=== PATIENT | female | born 1950 | race Caucasian/White ===

== ENCOUNTER 2017-05-11 16:04 | Emergency (ER) | payer MEDICAID ==
[~2017-05-11] VITALS: Ht 165.1 cm; Wt 71.2 kg
[~2017-05-11 16:04] MED LIST: ACTONEL30 MG PO; ADULT TUSS100 MG/5 M PO; ADVAIR 250-501 EACH INH; ADVAIR HFA115 MCG/21; ALPHAGAN P10 ML OPHTHALMIC; AMOXICILLIN500 M1 PO; AUGMENTIN 875875 MG PO; BACTRIM DS TAB1 EACH PO; CEFDINIR300 MG PO; CEFTIN 250 MG250 MG; CEFUROXIME250 MG PO; CIPROFLOXACIN; CIPROFLOXACIN250 M2; CIPROFLOXACIN500 M1 PO; CIPROFLOXACIN500 M3 PO; CLEOCIN HCL150 MG PO; COLACE100 MG PO; COSOPT EYE DROPS5 ML; COSOPT PF EYE1 EACH OPHTHALMIC; DIFLUCAN150 MG PO; ESTRING1 EACH VG; FLAGYL500 MG PO; FLEXERIL PO; INDAPAMIDE1.25 MG; KEFLEX250 MG PO; KEFLEX500 MG PO; KLOR-CON 1010 MEQ PO; LEVAQUIN 250 M250 MG; LEVAQUIN 500 M500 M2 PO; LINZESS290 MCG; LINZESS290 MCG PO; MACROBID 100 M100 M1 PO; MACRODANTIN25 MG; MINOCYCLINE 5050 M1 PO; MIRALAX17 GM PO; NORCO 5-325 TA1 EACH PO; NYSTATIN-TRIAMC15 GM TOP; ONDANSETRON HCL4 M2 PO; OSELB75 PO; PERCOCET 5-3251 EACH PO; PERI-COLACE TA1 EACH PO; POTASSIUM20 PO; PROAIR HFA8.5 GM; PROAIR HFA8.5 GM INH; PYRIDIUM200 MG PO; RANITIDINE; ROBAXIN500 MG PO; SINGULAIR; SINGULAIR 10 MG10 M1 PO; TERAZOL 320 GM VG; TRAMADOL 50 MG50 MG PO; URISPAS100 MG PO; VENTOLIN HFA INH8 GM IH; VICOPROFEN 2001 EACH PO; VISTARIL 25 MG25 M1 PO; XALATAN2.5 M1 OP; ZANTAC 150MG T150 MG PO; [UNRECOGNIZED DRUG - REMARK]
[2017-05-11 16:29] LABS: ABSOLUTE BASOPHILS 0.1 thou/uL (0.0-0.2); ABSOLUTE EOSINOPHILS 0.8 thou/uL (0.0-0.7); ABSOLUTE LYMPHOCYTES 2.4 thou/uL (0.8-5.3); ABSOLUTE MONOCYTES 0.6 thou/uL (0.0-1.2); ABSOLUTE NEUTROPHILS 4.2 thou/uL (1.6-8.1); BASOPHILS 0.7 %; EOSINOPHILS 9.5 %; HEMATOCRIT 41.9 % (37.0-47.0); HEMOGLOBIN 14.2 gm/dL (12.0-15.0); LYMPHOCYTES 30.1 %; MCH 32.2 pg (26.0-34.0); MCHC 33.9 g/dL (28.0-37.0); MONOCYTES 7.5 %; MPV 8.6 fl. (7.2-11.1); NUCLEATED RBCS 0 /100WBC; PLATELET COUNT* 265 thou/uL (150-400); POLYS 52.2 %; RBC 4.41 mil/uL (4.20-5.00); RDW-CV 13.2 % (10.5-14.5)
[2017-05-11 16:42] LABS: ANION GAP 12 mmol/L (7-16); BUN 20 mg/dL (7-18); CALCIUM 9.2 mg/dL (8.5-10.1); CHLORIDE 100 mmol/L (98-107); CO2 27 mmol/L (21-32); CREATININE 1.5 mg/dL (0.6-1.3); GLUCOSE 96 mg/dL (70-99); POTASSIUM 3.1 mmol/L (3.5-5.1); SODIUM 139 mmol/L (136-145)
[2017-05-11 16:49] LABS: ALBUMIN 4.6 g/dL (3.4-5.0); ALKALINE PHOSPHATASE 69 U/L (46-116); NT-PRO BRAIN NAT PEPTIDE 301 pg/mL (<300); SGOT 28 U/L (15-37); SGPT 32 U/L (30-65); TOTAL BILIRUBIN 0.4 mg/dL (<0.1-1.0); TROPONIN-I LEVEL <0.06 ng/mL (<0.06)
[2017-05-11 20:23] VITALS: BP 151/77
--- NOTE | 2017-05-12 16:26 | EKG ---
[place] [address] ELECTROCARDIOGRAM REPORT Name: JOSE ROMAN Alejandro Room: [facility]#: [id number] Admission: 05/11/17 Attend Phys: Discharge: 05/11/17 Date of : 50 Report #: [id number] THIS REPORT FOR: //name// [facility] ED Test Date: 2017-05-11 Test Time: 16:11:01 Pat Name: JOSE BENSON Department: Room: Gender: F Compliance Examiner: Debora ROSA : 1950 Requested By: Robert Wyatt Order Number: [id number] MD: Luisito Harvey Measurements Intervals [place] Rate: 90 P: 76 [place]: 147 QRS: -12 QRSD: 98 T: 64 QT: 376 QTc: 460 Interpretive Statements Sinus rhythm Ventricular trigeminy Baseline wander Electronically Signed On 05-12-2017 16:25:53 PLATE GRAINER by Luisito Harvey [email or web address] <ELECTRONICALLY SIGNED> By: Luisito Harvey MD, [facility] 05/12/17 1625 1611 1611 Luisito Harvey MD, FACC /EPI
== END 2017-05-11 20:23 | disposition home or self-care (01) ==
LOC: M.ERS 16:04
PROVIDERS: Physician Assistant
DX: R00.2 Palpitations (principal); E87.6 Hypokalemia; I12.9 Hypertensive chronic kidney disease with stage 1 through stage 4 chronic kidney disease, or unspecified chronic kidney disease; N18.3 Chronic kidney disease, stage 3 (moderate); E05.90 Thyrotoxicosis, unspecified without thyrotoxic crisis or storm; H40.9 Unspecified glaucoma; J45.909 Unspecified asthma, uncomplicated; Z87.11 Personal history of peptic ulcer disease; Z87.440 Personal history of urinary (tract) infections; Z98.890 Other specified postprocedural states; Z91.041 Radiographic dye allergy status; Z88.6 Allergy status to analgesic agent; Z88.5 Allergy status to narcotic agent; Z88.2 Allergy status to sulfonamides

== ENCOUNTER 2017-05-14 23:33 | Emergency (ER) | payer MEDICAID ==
[~2017-05-14] VITALS: Ht 165.1 cm; Wt 69.0 kg
[2017-05-15 00:33] LABS: URINE BILIRUBIN NEGATIVE (Negative); URINE BLOOD NEGATIVE (Negative); URINE CLARITY CLEAR; URINE COLOR DARK YELLOW; URINE GLUCOSE-RANDOM NEGATIVE (Negative); URINE KETONES NEGATIVE (Negative); URINE LEUKOCYTES-REFLEX NEGATIVE (Negative); URINE PROTEIN NEGATIVE (Negative); URINE SPECIFIC GRAVITY >= 1.030 (1.005-1.030); URINE UROBILINOGEN 0.2 E.U./dl (0.2-1.0)
[2017-05-15 00:34] LABS: URINE NITRITE-REFLEX POSITIVE (Negative)
[2017-05-15 00:49] LABS: HEMATOCRIT 39.7 % (37.0-47.0); MCH 31.9 pg (26.0-34.0); MCHC 32.8 g/dL (28.0-37.0); MCV 97.2 fL (80.0-100.0); MPV 9.6 fl. (7.2-11.1); NUCLEATED RBCS 0 /100WBC; PLATELET COUNT* 232 thou/uL (150-400); RBC 4.08 mil/uL (4.20-5.00); RDW-CV 12.9 % (10.5-14.5); WBC 8.7 thou/uL (4.0-11.0)
[2017-05-15 00:54] LABS: ANION GAP 11 mmol/L (7-16); BUN 24 mg/dL (7-18); CALCIUM 8.8 mg/dL (8.5-10.1); CHLORIDE 103 mmol/L (98-107); CO2 28 mmol/L (21-32); CREATININE 1.5 mg/dL (0.6-1.3); GLUCOSE 115 mg/dL (70-99); POTASSIUM 3.6 mmol/L (3.5-5.1); SODIUM 142 mmol/L (136-145)
[2017-05-15 00:56] LABS: PROTIME 10.1 Seconds (9.20-11.50)
[2017-05-15 01:05] LABS: ALBUMIN 3.8 g/dL (3.4-5.0); ALKALINE PHOSPHATASE 55 U/L (46-116); NT-PRO BRAIN NAT PEPTIDE 240 pg/mL (<300); SGOT 33 U/L (15-37); SGPT 31 U/L (30-65); TOTAL BILIRUBIN 0.3 mg/dL (<0.1-1.0); TOTAL PROTEIN 6.9 g/dL (6.4-8.2)
[2017-05-15 01:06] LABS: TROPONIN-I LEVEL <0.06 ng/mL (<0.06)
[2017-05-15 01:12] LABS: HYALINE CASTS 0-3 Few /LPF (None Seen); MUCUS 0-3 Light strn/LPF (None Seen); SQUAMOUS 4-10 Moderate /LPF (0-3); URINE RBC None Seen /HPF (0-2)
[2017-05-15 01:13] LABS: BACTERIA-REFLEX 1-9 Few /HPF (None Seen); CRYSTALS None Seen /LPF (None Seen); URINE WBC-REFLEX 0-5 Rare /HPF (0-5)
[2017-05-15 01:59] LABS: ABSOLUTE BASOPHILS 0.2 thou/uL (0.0-0.2); ABSOLUTE EOSINOPHILS 1.2 thou/uL (0.0-0.7); ABSOLUTE LYMPHOCYTES 2.1 thou/uL (0.8-5.3); ABSOLUTE MONOCYTES 0.4 thou/uL (0.0-1.2); ABSOLUTE NEUTROPHILS 4.8 thou/uL (1.6-8.1); ATYPICAL LYMPHS 1 %
[2017-05-15 02:00] LABS: PLATELET ESTIMATE ADEQUATE
[2017-05-15 02:31] VITALS: BP 141/71
--- NOTE | 2017-05-15 13:12 | EKG ---
[place] [address] ELECTROCARDIOGRAM REPORT Name: JOSE ROMAN Room: [facility]#: [id number] Admission: 05/14/17 Attend Phys: Discharge: 05/15/17 Date of : 50 Report #: [id number] THIS REPORT FOR: //name// [facility] ED Test Date: 2017-05-14 Test Time: 23:38:07 Pat Name: JOSE CHATTERJEEWELL Department: Room: Gender: F Filbert Grower: HOLLI : 1950 Requested By: Aletha Gilbert Order Number: [id number] MD: Gerry Solitario Measurements Intervals [place] Rate: 81 P: 72 [place]: 151 QRS: 12 QRSD: 97 T: 61 QT: 384 QTc: 446 Interpretive Statements Sinus arrhythmia Anteroseptal infarct, age indeterminate Baseline wander in lead(s) V1 Compared to ECG 05/11/2017 16:11:01 Myocardial infarct finding now present Sinus rhythm no longer present Ventricular premature complex(es) no longer present Electronically Signed On 05-15-2017 13:12:23 JUNIOR PHP DEVELOPER by Gerry Solitario [email or web address] <ELECTRONICALLY SIGNED> By: Gerry Solitario MD, [facility] 05/15/17 1312 2338 2338 Gerry Solitario MD, FAC /EPI
== END 2017-05-15 02:31 | disposition home or self-care (01) ==
LOC: M.ERS 23:33
PROVIDERS: Emergency Medicine
DX: R00.2 Palpitations (principal); I12.9 Hypertensive chronic kidney disease with stage 1 through stage 4 chronic kidney disease, or unspecified chronic kidney disease; N18.3 Chronic kidney disease, stage 3 (moderate); H40.9 Unspecified glaucoma; E03.9 Hypothyroidism, unspecified; J45.909 Unspecified asthma, uncomplicated; Z91.041 Radiographic dye allergy status; Z88.5 Allergy status to narcotic agent; Z88.2 Allergy status to sulfonamides; Z88.8 Allergy status to other drugs, medicaments and biological substances

== ENCOUNTER 2017-05-18 04:00 | Emergency (ER) | payer MEDICAID ==
[~2017-05-18] VITALS: Ht 162.6 cm; Wt 68.0 kg
[2017-05-18] MEDS ORDERED: ADVAIR (04:10)
[2017-05-18] MEDS ORDERED: PROAIR HFA8.5 GM (04:10)
[2017-05-18] MEDS ORDERED: SINGULAIR 10 MG10 M1 (04:10)
[2017-05-18] MEDS ORDERED: [UNRECOGNIZED DRUG - OTHER] (04:11)
[2017-05-18] MEDS ORDERED: METOPROLOL (04:12)
[2017-05-18] MEDS ORDERED: RANITIDINE (04:12)
[2017-05-18 04:48] LABS: HEMATOCRIT 37.9 % (37.0-47.0); HEMOGLOBIN 12.6 gm/dL (12.0-15.0); MCH 32.1 pg (26.0-34.0); MCHC 33.2 g/dL (28.0-37.0); MCV 96.8 fL (80.0-100.0); MPV 8.9 fl. (7.2-11.1); NUCLEATED RBCS 0 /100WBC; PLATELET COUNT* 230 thou/uL (150-400); RBC 3.92 mil/uL (4.20-5.00); RDW-CV 13.4 % (10.5-14.5)
[2017-05-18 04:50] LABS: ANION GAP 10 mmol/L (7-16); BUN 23 mg/dL (7-18); CALCIUM 8.8 mg/dL (8.5-10.1); CHLORIDE 107 mmol/L (98-107); CO2 25 mmol/L (21-32); CREATININE 1.1 mg/dL (0.6-1.3); GLUCOSE 105 mg/dL (70-99); POTASSIUM 4.3 mmol/L (3.5-5.1); SODIUM 142 mmol/L (136-145)
[2017-05-18 04:56] LABS: URINE BILIRUBIN NEGATIVE (Negative); URINE BLOOD NEGATIVE (Negative); URINE CLARITY CLEAR; URINE COLOR STRAW; URINE GLUCOSE-RANDOM NEGATIVE (Negative); URINE KETONES NEGATIVE (Negative); URINE LEUKOCYTES-REFLEX NEGATIVE (Negative); URINE NITRITE-REFLEX NEGATIVE (Negative); URINE PROTEIN NEGATIVE (Negative); URINE SPECIFIC GRAVITY <= 1.005 (1.005-1.030); URINE UROBILINOGEN 0.2 E.U./dl (0.2-1.0)
[2017-05-18 05:00] LABS: ALBUMIN 3.7 g/dL (3.4-5.0); ALKALINE PHOSPHATASE 52 U/L (46-116); SGOT 22 U/L (15-37); SGPT 27 U/L (30-65); TOTAL BILIRUBIN 0.2 mg/dL (<0.1-1.0); TOTAL PROTEIN 6.4 g/dL (6.4-8.2); TROPONIN-I LEVEL <0.06 ng/mL (<0.06)
[2017-05-18 05:51] LABS: ABSOLUTE BASOPHILS 0.1 thou/uL (0.0-0.2); ABSOLUTE EOSINOPHILS 0.9 thou/uL (0.0-0.7); ABSOLUTE LYMPHOCYTES 1.8 thou/uL (0.8-5.3); ABSOLUTE MONOCYTES 0.8 thou/uL (0.0-1.2); ABSOLUTE NEUTROPHILS 4.4 thou/uL (1.6-8.1); ANISOCYTOSIS 1+; PLATELET ESTIMATE ADEQUATE; POIKILOCYTOSIS 1+
[2017-05-18 06:12] VITALS: BP 130/54
--- NOTE | 2017-05-18 11:26 | EKG ---
[place] [address] ELECTROCARDIOGRAM REPORT Name: COLMENARES MARCELINOJOSE Alejandro Room: [facility]#: [id number] Admission: 05/18/17 Attend Phys: Discharge: 05/18/17 Date of : 50 Report #: [id number] THIS REPORT FOR: //name// [facility] ED Test Date: 2017-05-18 Test Time: 04:07:56 Pat Name: JOSE BENSON Department: Room: Gender: F Ground Operations Supervisor: JANNA Cazares : 1950 Requested By: Aletha Gilbert Order Number: [id number] MD: George Cohen Measurements Intervals [place] Rate: 79 P: 79 [place]: 146 QRS: 15 QRSD: 92 T: 54 QT: 405 QTc: 465 Interpretive Statements Sinus rhythm Ventricular trigeminy Probable anteroseptal infarct, recent Baseline wander in lead(s) V5,V6 No previous ECG available for comparison Electronically Signed On 05-18-2017 11:26:12 BUCKLE SORTER by George Cohen [email or web address] <ELECTRONICALLY SIGNED> By: George Cohen MD, [facility] 05/18/17 1126 0407 0407 George Cohen MD, [facility] /EPI
== END 2017-05-18 06:15 | disposition home or self-care (01) ==
LOC: M.ERS 04:00
PROVIDERS: Emergency Medicine
DX: R19.7 Diarrhea, unspecified (principal); R00.2 Palpitations; I12.9 Hypertensive chronic kidney disease with stage 1 through stage 4 chronic kidney disease, or unspecified chronic kidney disease; N18.3 Chronic kidney disease, stage 3 (moderate)

== ENCOUNTER 2017-06-18 12:37 | Emergency (ER) | payer MEDICAID ==
[~2017-06-18] VITALS: Ht 162.6 cm; Wt 71.7 kg
[~2017-06-18 12:37] MED LIST changes: +ADVAIR; +METOPROLOL; +SINGULAIR 10 MG10 M1; +[UNRECOGNIZED DRUG - OTHER]
[2017-06-18] MEDS ORDERED: ZANTAC 150MG T150 MG PO (12:57)
[2017-06-18] MEDS ORDERED: INDAPAMIDE1.25 MG PO (12:58)
[2017-06-18 13:16] LABS: URINE BILIRUBIN NEGATIVE (Negative); URINE BLOOD NEGATIVE (Negative); URINE CLARITY CLEAR; URINE COLOR YELLOW; URINE GLUCOSE-RANDOM NEGATIVE (Negative); URINE KETONES NEGATIVE (Negative); URINE LEUKOCYTES-REFLEX NEGATIVE (Negative); URINE NITRITE-REFLEX NEGATIVE (Negative); URINE PROTEIN TRACE (Negative); URINE SPECIFIC GRAVITY >= 1.030 (1.005-1.030); URINE UROBILINOGEN 0.2 E.U./dl (0.2-1.0)
[2017-06-18 13:28] LABS: ABSOLUTE BASOPHILS 0.1 thou/uL (0.0-0.2); ABSOLUTE EOSINOPHILS 0.5 thou/uL (0.0-0.7); ABSOLUTE LYMPHOCYTES 1.5 thou/uL (0.8-5.3); ABSOLUTE MONOCYTES 0.4 thou/uL (0.0-1.2); ABSOLUTE NEUTROPHILS 4.6 thou/uL (1.6-8.1); BASOPHILS 0.8 %; EOSINOPHILS 7.1 %; HEMATOCRIT 38.6 % (37.0-47.0); HEMOGLOBIN 12.7 gm/dL (12.0-15.0); LYMPHOCYTES 20.9 %; MCH 31.9 pg (26.0-34.0); MCHC 32.9 g/dL (28.0-37.0); MCV 96.9 fL (80.0-100.0); MPV 8.6 fl. (7.2-11.1); NUCLEATED RBCS 0 /100WBC; PLATELET COUNT* 248 thou/uL (150-400); POLYS 65.2 %; RBC 3.99 mil/uL (4.20-5.00); RDW-CV 13.1 % (10.5-14.5)
[2017-06-18 13:32] LABS: CALCIUM 8.7 mg/dL (8.5-10.1); CREATININE 1.3 mg/dL (0.6-1.3); POTASSIUM 3.9 mmol/L (3.5-5.1)
[2017-06-18 13:37] LABS: ALBUMIN 3.6 g/dL (3.4-5.0); TOTAL BILIRUBIN 0.2 mg/dL (<0.1-1.0); TOTAL PROTEIN 6.6 g/dL (6.4-8.2)
[2017-06-18 15:05] VITALS: BP 140/70
== END 2017-06-18 15:07 | disposition home or self-care (01) ==
LOC: M.ERS 12:37
PROVIDERS: Physician Assistant
DX: R10.32 Left lower quadrant pain (principal); R10.12 Left upper quadrant pain; I12.9 Hypertensive chronic kidney disease with stage 1 through stage 4 chronic kidney disease, or unspecified chronic kidney disease; N18.3 Chronic kidney disease, stage 3 (moderate); Z88.2 Allergy status to sulfonamides; Z88.8 Allergy status to other drugs, medicaments and biological substances; Z88.5 Allergy status to narcotic agent; Z91.041 Radiographic dye allergy status

== ENCOUNTER 2017-07-01 05:36 | Emergency (ER) | payer MEDICAID ==
[~2017-07-01] VITALS: Ht 162.6 cm; Wt 70.3 kg
[~2017-07-01 05:36] MED LIST changes: +INDAPAMIDE1.25 MG PO
[2017-07-01 06:02] LABS: ABSOLUTE BASOPHILS 0.1 thou/uL (0.0-0.2); ABSOLUTE EOSINOPHILS 0.3 thou/uL (0.0-0.7); ABSOLUTE LYMPHOCYTES 1.4 thou/uL (0.8-5.3); ABSOLUTE MONOCYTES 0.8 thou/uL (0.0-1.2); ABSOLUTE NEUTROPHILS 3.2 thou/uL (1.6-8.1); BASOPHILS 1.4 %; HEMATOCRIT 36.7 % (37.0-47.0); HEMOGLOBIN 12.2 gm/dL (12.0-15.0); MCH 31.9 pg (26.0-34.0); MCHC 33.3 g/dL (28.0-37.0); MONOCYTES 13.6 %; MPV 8.1 fl. (7.2-11.1); NUCLEATED RBCS 0 /100WBC; PLATELET COUNT* 190 thou/uL (150-400); RBC 3.82 mil/uL (4.20-5.00); RDW-CV 13.1 % (10.5-14.5); WBC 5.8 thou/uL (4.0-11.0)
[2017-07-01 06:27] LABS: ALBUMIN 3.3 g/dL (3.4-5.0); ALKALINE PHOSPHATASE 67 U/L (46-116); ANION GAP 13 mmol/L (7-16); BUN 17 mg/dL (7-18); CALCIUM 8.1 mg/dL (8.5-10.1); CHLORIDE 107 mmol/L (98-107); CO2 21 mmol/L (21-32); CREATININE 1.3 mg/dL (0.6-1.3); GLUCOSE 105 mg/dL (70-99); SGOT 46 U/L (15-37); SGPT 56 U/L (30-65); SODIUM 141 mmol/L (136-145); TOTAL BILIRUBIN 0.1 mg/dL (<0.1-1.0); TOTAL PROTEIN 6.3 g/dL (6.4-8.2); TROPONIN-I LEVEL <0.06 ng/mL (<0.06)
[2017-07-01 06:43] LABS: URINE BILIRUBIN NEGATIVE (Negative); URINE BLOOD NEGATIVE (Negative); URINE CLARITY CLEAR; URINE COLOR YELLOW; URINE GLUCOSE-RANDOM NEGATIVE (Negative); URINE KETONES NEGATIVE (Negative); URINE LEUKOCYTES-REFLEX NEGATIVE (Negative); URINE NITRITE-REFLEX NEGATIVE (Negative); URINE PROTEIN NEGATIVE (Negative); URINE UROBILINOGEN 0.2 E.U./dl (0.2-1.0)
[2017-07-01 06:59] VITALS: BP 148/56
--- NOTE | 2017-07-01 10:36 | EKG ---
[place] [address] ELECTROCARDIOGRAM REPORT Name: JOSE ROMAN Alejandro Room[facility]#: [id number] Admission: 07/01/17 Attend Phys: Discharge: 07/01/17 Date of : 50 Report #: [id number] THIS REPORT FOR: //name// [facility] ED Test Date: 2017-07-01 Test Time: 05:41:22 Pat Name: JOSE BENSON Department: Room: Gender: F Roustabout Crew: JANNA Cazares : 1950 Requested By: Aletha Gilbert Order Number: [id number] MD: George Cohen Measurements Intervals [place] Rate: 102 P: 69 [place]: 161 QRS: 8 QRSD: 98 T: 66 QT: 364 QTc: 475 Interpretive Statements Sinus rhythm atrial and ventricular premature complexes Probable left atrial enlargement Anterior infarct, old Baseline wander in lead(s) V2,V3 Compared to ECG 05/18/2017 04:07:56 Myocardial infarct finding still present Electronically Signed On 07-01-2017 10:36:21 SCREW MACHINE ADJUSTER AUTOMATIC by George Cohen [email or web address] <ELECTRONICALLY SIGNED> By: George Cohen MD, FAC 07/01/17 1036 0541 0541 George Cohen MD, [facility] /EPI
== END 2017-07-01 07:00 | disposition home or self-care (01) ==
LOC: M.ERS 05:36
PROVIDERS: Emergency Medicine
DX: E87.6 Hypokalemia (principal); J06.9 Acute upper respiratory infection, unspecified; I12.9 Hypertensive chronic kidney disease with stage 1 through stage 4 chronic kidney disease, or unspecified chronic kidney disease; N18.3 Chronic kidney disease, stage 3 (moderate); Z88.2 Allergy status to sulfonamides; Z88.8 Allergy status to other drugs, medicaments and biological substances; Z88.5 Allergy status to narcotic agent; Z91.041 Radiographic dye allergy status

== ENCOUNTER 2017-10-02 19:15 | Emergency (ER) | payer MEDICAID ==
[~2017-10-02] VITALS: Ht 162.6 cm; Wt 68.0 kg
[2017-10-02] MEDS ORDERED: ASPIR 8181 MG PO (19:32)
[2017-10-02] MEDS ORDERED: KEFLEX250 MG PO (19:33)
[2017-10-02] MEDS ORDERED: MOTION RELIEF25 MG PO (20:36)
[2017-10-02] MEDS ORDERED: ZOFRAN ODT4 MG PO (20:36)
[2017-10-02 20:40] VITALS: BP 124/63
== END 2017-10-02 20:46 | disposition home or self-care (01) ==
LOC: M.ERS 19:15
DX: S06.0X0A Concussion without loss of consciousness, initial encounter (principal); I12.9 Hypertensive chronic kidney disease with stage 1 through stage 4 chronic kidney disease, or unspecified chronic kidney disease; N18.3 Chronic kidney disease, stage 3 (moderate); Z91.041 Radiographic dye allergy status; Z88.5 Allergy status to narcotic agent; Z88.6 Allergy status to analgesic agent; Z88.1 Allergy status to other antibiotic agents; Z88.8 Allergy status to other drugs, medicaments and biological substances; W22.8XXA Striking against or struck by other objects, initial encounter; Y93.89 Activity, other specified; Y92.89 Other specified places as the place of occurrence of the external cause; Y99.8 Other external cause status

== ENCOUNTER 2017-10-30 16:14 | Emergency (ER) | payer MEDICAID ==
[~2017-10-30] VITALS: Ht 165.1 cm; Wt 67.1 kg
[~2017-10-30 16:14] MED LIST changes: +ASPIR 8181 MG PO; +MOTION RELIEF25 MG PO; +ZOFRAN ODT4 MG PO
[2017-10-30 17:24] VITALS: BP 160/91
== END 2017-10-30 17:25 | disposition home or self-care (01) ==
LOC: M.ERS 16:14
DX: S86.112A Strain of other muscle(s) and tendon(s) of posterior muscle group at lower leg level, left leg, initial encounter (principal); I12.9 Hypertensive chronic kidney disease with stage 1 through stage 4 chronic kidney disease, or unspecified chronic kidney disease; N18.3 Chronic kidney disease, stage 3 (moderate); Z91.041 Radiographic dye allergy status; Z88.5 Allergy status to narcotic agent; Z88.8 Allergy status to other drugs, medicaments and biological substances; Z88.2 Allergy status to sulfonamides; X58.XXXA Exposure to other specified factors, initial encounter; Y93.89 Activity, other specified; Y92.89 Other specified places as the place of occurrence of the external cause; Y99.8 Other external cause status

== ENCOUNTER 2017-11-12 19:37 | Emergency (ER) | payer MEDICAID ==
[~2017-11-12] VITALS: Ht 165.1 cm; Wt 68.0 kg
[2017-11-12 20:00] LABS: HEMOGLOBIN 13.5 gm/dL (12.0-15.0); MCH 31.9 pg (26.0-34.0); NUCLEATED RBCS 0 /100WBC; WBC 8.5 thou/uL (4.0-11.0)
[2017-11-12 20:01] LABS: HEMATOCRIT 40.6 % (37.0-47.0); MCHC 33.2 g/dL (28.0-37.0); MCV 96.2 fL (80.0-100.0); PLATELET COUNT* 295 thou/uL (150-400); RBC 4.22 mil/uL (4.20-5.00); RDW-CV 13.2 % (10.5-14.5)
[2017-11-12] MEDS ORDERED: TOPROL XL25 MG PO (20:09)
[2017-11-12 20:11] LABS: ANION GAP 6 mmol/L (7-16); BUN 22 mg/dL (7-18); CALCIUM 8.5 mg/dL (8.5-10.1); CHLORIDE 104 mmol/L (98-107); CO2 29 mmol/L (21-32); CREATININE 1.4 mg/dL (0.6-1.3); GLUCOSE 89 mg/dL (70-99); POTASSIUM 3.5 mmol/L (3.5-5.1); SODIUM 139 mmol/L (136-145)
[2017-11-12 20:15] LABS: APTT 24.3 Seconds (25.0-31.3); PROTIME 9.6 Seconds (9.20-11.50)
[2017-11-12 20:22] LABS: ALBUMIN 3.7 g/dL (3.4-5.0); ALKALINE PHOSPHATASE 76 U/L (46-116); LIPASE 300 U/L (73-393); NT-PRO BRAIN NAT PEPTIDE 322 pg/mL (<300); SGOT 24 U/L (15-37); SGPT 29 U/L (30-65); TOTAL BILIRUBIN 0.2 mg/dL (<0.1-1.0); TROPONIN-I LEVEL <0.06 ng/mL (<0.06)
[2017-11-12 20:33] LABS: ABSOLUTE EOSINOPHILS 0.9 thou/uL (0.0-0.7); ABSOLUTE LYMPHOCYTES 2.7 thou/uL (0.8-5.3); ABSOLUTE MONOCYTES 0.6 thou/uL (0.0-1.2); ABSOLUTE NEUTROPHILS 4.3 thou/uL (1.6-8.1); PLATELET ESTIMATE ADEQUATE
[2017-11-12 20:53] LABS: URINE BILIRUBIN NEGATIVE (Negative); URINE BLOOD NEGATIVE (Negative); URINE CLARITY CLEAR; URINE COLOR YELLOW; URINE GLUCOSE-RANDOM NEGATIVE (Negative); URINE KETONES NEGATIVE (Negative); URINE LEUKOCYTES-REFLEX 1+ (Negative); URINE NITRITE-REFLEX NEGATIVE (Negative); URINE PROTEIN NEGATIVE (Negative); URINE SPECIFIC GRAVITY 1.025 (1.005-1.030); URINE UROBILINOGEN 0.2 E.U./dl (0.2-1.0)
[2017-11-12 21:02] LABS: COARSE GRANULAR CASTS 0-3 Few /LPF (None Seen); FINE GRANULAR CASTS 0-3 Few /LPF (None Seen); MUCUS >6 Heavy strn/LPF (None Seen); SQUAMOUS 4-10 Moderate /LPF (0-3)
[2017-11-12 21:03] LABS: HYALINE CASTS 0-3 Few /LPF (None Seen)
[2017-11-12 21:04] LABS: AMORPHOUS URATES Few /LPF (None Seen); BACTERIA-REFLEX 1-9 Few /HPF (None Seen); CRYSTALS None Seen /LPF (None Seen); URINE RBC 0-2 Rare /HPF (0-2); URINE WBC-REFLEX 6-15 Few /HPF (0-5); WBC CLUMPS Few (None Seen)
[2017-11-12] MEDS ORDERED: CIPROFLOXACIN500 M1 PO (21:44)
[2017-11-12 22:30] VITALS: BP 121/67
--- NOTE | 2017-11-13 14:07 | EKG ---
[place] [address] ELECTROCARDIOGRAM REPORT Name: COLMENARES JOSE BENSON SANDRA Room: [facility]#: [id number] Admission: 11/12/17 Attend Phys: Discharge: 11/12/17 Date of : 50 Report #: [id number] THIS REPORT FOR: //name// [facility] ED Test Date: 2017-11-12 Test Time: 19:43:55 Pat Name: JOSE BENSON Department: Room: Gender: F Forest Nursery Supervisor: DEBBI : 1950 Requested By: Saranya Russo Order Number: [id number] MD: George Cohen Measurements Intervals [place] Rate: 119 P: 72 [place]: 140 QRS: -1 QRSD: 88 T: 53 QT: 347 QTc: 489 Interpretive Statements Sinus tachycardia PAC's and ventricular premature complexes Compared to ECG 07/01/2017 05:41:22 no change Electronically Signed On 11-13-2017 14:07:13 CDT by George Cohen [email or web address] <ELECTRONICALLY SIGNED> By: George Cohen MD, [facility] 11/13/17 1407 42 42 George Cohen MD, [facility] /EPI
== END 2017-11-12 22:30 | disposition home or self-care (01) ==
LOC: M.ERS 19:37
PROVIDERS: Personal Emergency Response Attendant
DX: N39.0 Urinary tract infection, site not specified (principal); R00.2 Palpitations; I12.9 Hypertensive chronic kidney disease with stage 1 through stage 4 chronic kidney disease, or unspecified chronic kidney disease; N18.3 Chronic kidney disease, stage 3 (moderate); K92.89 Other specified diseases of the digestive system; Z91.041 Radiographic dye allergy status; Z88.5 Allergy status to narcotic agent; Z88.8 Allergy status to other drugs, medicaments and biological substances; Z88.2 Allergy status to sulfonamides

== ENCOUNTER 2017-12-08 01:59 | Emergency (ER) | payer MEDICAID ==
[~2017-12-08] VITALS: Ht 162.6 cm; Wt 67.6 kg
[~2017-12-08 01:59] MED LIST changes: +TOPROL XL25 MG PO
[2017-12-08 02:38] LABS: ABSOLUTE BASOPHILS 0.1 thou/uL (0.0-0.2); ABSOLUTE EOSINOPHILS 0.7 thou/uL (0.0-0.7); ABSOLUTE LYMPHOCYTES 1.3 thou/uL (0.8-5.3); ABSOLUTE MONOCYTES 0.8 thou/uL (0.0-1.2); BASOPHILS 0.6 %; EOSINOPHILS 5.7 %; HEMATOCRIT 40.8 % (37.0-47.0); LYMPHOCYTES 11.4 %; MCH 31.3 pg (26.0-34.0); MCHC 31.8 g/dL (28.0-37.0); MCV 98.3 fL (80.0-100.0); MONOCYTES 6.5 %; MPV 8.3 fl. (7.2-11.1); NUCLEATED RBCS 0 /100WBC; PLATELET COUNT* 224 thou/uL (150-400); POLYS 75.8 %; RBC 4.15 mil/uL (4.20-5.00); RDW-CV 13.4 % (10.5-14.5); WBC 11.8 thou/uL (4.0-11.0)
[2017-12-08 02:44] LABS: CALCIUM 8.8 mg/dL (8.5-10.1); CREATININE 1.4 mg/dL (0.6-1.3); POTASSIUM 3.1 mmol/L (3.5-5.1)
[2017-12-08 02:48] LABS: ALBUMIN 3.4 g/dL (3.4-5.0); TOTAL BILIRUBIN 0.2 mg/dL (<0.1-1.0); TOTAL PROTEIN 6.6 g/dL (6.4-8.2)
[2017-12-08 04:15] LABS: URINE CLARITY CLEAR; URINE COLOR ORANGE; URINE SPECIFIC GRAVITY 1.025 (1.005-1.030)
[2017-12-08 04:16] LABS: ACETEST (KETONE CONFIRMATORY) Negative (Negative); ICTOTEST (BILI CONFIRMATORY) Negative (Negative); SSA (PROTEIN CONFIRMATORY) NEGATIVE (Negative); URINE BILIRUBIN ND (Negative); URINE BLOOD ND (Negative); URINE GLUCOSE-RANDOM ND (Negative); URINE KETONES ND (Negative); URINE LEUKOCYTES-REFLEX ND (Negative); URINE NITRITE-REFLEX ND (Negative); URINE REDUCING SUBSTANCE NEGATIVE (Negative); URINE UROBILINOGEN ND E.U./dl (0.2-1.0)
[2017-12-08 04:17] LABS: URINE PROTEIN ND (Negative)
[2017-12-08 05:06] LABS: BACTERIA-REFLEX >30 Many /HPF (None Seen); SQUAMOUS 0-3 Few /LPF (0-3); URINE RBC 3-10 Few /HPF (0-2); URINE WBC-REFLEX 6-15 Few /HPF (0-5)
[2017-12-08 05:07] LABS: COARSE GRANULAR CASTS 0-3 Few /LPF (None Seen); CRYSTALS None Seen /LPF (None Seen); HYALINE CASTS 0-3 Few /LPF (None Seen); MUCUS 0-3 Light strn/LPF (None Seen)
[2017-12-08 06:09] VITALS: BP 158/60
== END 2017-12-08 06:10 | disposition short-term general hospital (02) ==
LOC: M.ERS 01:59
PROVIDERS: Emergency Medicine
DX: K63.1 Perforation of intestine (nontraumatic) (principal); I12.9 Hypertensive chronic kidney disease with stage 1 through stage 4 chronic kidney disease, or unspecified chronic kidney disease; N18.3 Chronic kidney disease, stage 3 (moderate); E07.9 Disorder of thyroid, unspecified; Z88.1 Allergy status to other antibiotic agents; Z88.5 Allergy status to narcotic agent; Z91.041 Radiographic dye allergy status; Z88.8 Allergy status to other drugs, medicaments and biological substances

== ENCOUNTER → 2017-12-22 | Outpatient (CLI) | payer MEDICAID ==
[~2017-12-22] MED LIST changes: +BENZONATATE200 MG PO; +MAGIC MOUTHWASH SWISH&SPIT; +PEPCID40 MG PO
== END ==
LOC: M.RAD 14:58
DX: Z12.31 Encounter for screening mammogram for malignant neoplasm of breast (principal)

== ENCOUNTER 2017-12-31 16:44 | Emergency (ER) | payer MEDICAID ==
[~2017-12-31] VITALS: Ht 162.6 cm; Wt 64.4 kg
[~2017-12-31 16:44] MED LIST changes: -BENZONATATE200 MG PO; -MAGIC MOUTHWASH SWISH&SPIT; -PEPCID40 MG PO
[2017-12-31] MEDS ORDERED: PEPCID40 MG PO (17:51)
[2017-12-31 17:58] VITALS: BP 160/82
== END 2017-12-31 17:59 | disposition home or self-care (01) ==
LOC: M.ERS 16:44
DX: T63.441A Toxic effect of venom of bees, accidental (unintentional), initial encounter (principal); I12.9 Hypertensive chronic kidney disease with stage 1 through stage 4 chronic kidney disease, or unspecified chronic kidney disease; N18.3 Chronic kidney disease, stage 3 (moderate); Z91.041 Radiographic dye allergy status; Z88.5 Allergy status to narcotic agent; Z88.2 Allergy status to sulfonamides; Z88.8 Allergy status to other drugs, medicaments and biological substances; Y92.89 Other specified places as the place of occurrence of the external cause

== ENCOUNTER 2018-01-05 01:40 | Emergency (ER) | payer MEDICAID ==
[~2018-01-05] VITALS: Ht 162.6 cm; Wt 81.7 kg
[~2018-01-05 01:40] MED LIST changes: +PEPCID40 MG PO
[2018-01-05] MEDS ORDERED: MAGIC MOUTHWASH SWISH&SPIT (02:09)
[2018-01-05 02:29] VITALS: BP 127/63
== END 2018-01-05 02:30 | disposition home or self-care (01) ==
LOC: M.ERS 01:40
DX: K13.79 Other lesions of oral mucosa (principal); K02.9 Dental caries, unspecified; I12.9 Hypertensive chronic kidney disease with stage 1 through stage 4 chronic kidney disease, or unspecified chronic kidney disease; N18.3 Chronic kidney disease, stage 3 (moderate); Z91.041 Radiographic dye allergy status; Z88.5 Allergy status to narcotic agent; Z88.6 Allergy status to analgesic agent; Z88.2 Allergy status to sulfonamides; Z88.8 Allergy status to other drugs, medicaments and biological substances

== ENCOUNTER 2018-03-08 12:56 | Emergency (ER) | payer MEDICAID ==
[~2018-03-08] VITALS: Ht 162.6 cm; Wt 72.6 kg
[~2018-03-08 12:56] MED LIST changes: +MAGIC MOUTHWASH SWISH&SPIT
[2018-03-08] MEDS ORDERED: BENZONATATE200 MG PO (13:47)
[2018-03-08 13:57] VITALS: BP 138/69
== END 2018-03-08 13:59 | disposition home or self-care (01) ==
LOC: M.ERS 12:56
DX: S90.32XA Contusion of left foot, initial encounter (principal); J02.8 Acute pharyngitis due to other specified organisms; B97.89 Other viral agents as the cause of diseases classified elsewhere; I12.9 Hypertensive chronic kidney disease with stage 1 through stage 4 chronic kidney disease, or unspecified chronic kidney disease; N18.3 Chronic kidney disease, stage 3 (moderate); E07.9 Disorder of thyroid, unspecified; Z91.041 Radiographic dye allergy status; Z88.5 Allergy status to narcotic agent; Z88.6 Allergy status to analgesic agent; Z88.2 Allergy status to sulfonamides; Z88.8 Allergy status to other drugs, medicaments and biological substances; W22.8XXA Striking against or struck by other objects, initial encounter; Y93.89 Activity, other specified; Y92.89 Other specified places as the place of occurrence of the external cause; Y99.8 Other external cause status

== ENCOUNTER 2018-06-18 21:51 | Emergency (ER) | payer MEDICAID ==
[~2018-06-18] VITALS: Ht 162.6 cm; Wt 71.7 kg
[~2018-06-18 21:51] MED LIST changes: +BENZONATATE200 MG PO
[2018-06-18] MEDS ORDERED: MAGIC MOUTHWASH SWISH&SPIT (22:00)
[2018-06-18 22:32] LABS: ABSOLUTE BASOPHILS 0.2 thou/uL (0.0-0.2); ABSOLUTE EOSINOPHILS 0.9 thou/uL (0.0-0.7); ABSOLUTE LYMPHOCYTES 2.6 thou/uL (0.8-5.3); ABSOLUTE MONOCYTES 0.7 thou/uL (0.0-1.2); ABSOLUTE NEUTROPHILS 5.1 thou/uL (1.6-8.1); BASOPHILS 2.2 %; EOSINOPHILS 9.2 %; HEMATOCRIT 42.1 % (37.0-47.0); LYMPHOCYTES 27.3 %; MCH 31.4 pg (26.0-34.0); MCHC 33.3 g/dL (28.0-37.0); MCV 94.3 fL (80.0-100.0); MPV 8.2 fl. (7.2-11.1); NUCLEATED RBCS 0 /100WBC; PLATELET COUNT* 260 thou/uL (150-400); POLYS 54.3 %; RBC 4.46 mil/uL (4.20-5.00); RDW-CV 12.9 % (10.5-14.5); WBC 9.4 thou/uL (4.0-11.0)
[2018-06-18 22:39] LABS: ANION GAP 8 mmol/L (7-16); BUN 27 mg/dL (7-18); CALCIUM 8.8 mg/dL (8.5-10.1); CHLORIDE 108 mmol/L (98-107); CO2 25 mmol/L (21-32); CREATININE 1.6 mg/dL (0.6-1.3); GLUCOSE 101 mg/dL (70-99); POTASSIUM 4.2 mmol/L (3.5-5.1); SODIUM 141 mmol/L (136-145)
[2018-06-18 22:42] LABS: INR 0.9; PROTIME 9.5 Seconds (9.20-11.50)
[2018-06-18 22:50] LABS: ALBUMIN 3.6 g/dL (3.4-5.0); ALKALINE PHOSPHATASE 100 U/L (46-116); LIPASE 330 U/L (73-393); NT-PRO BRAIN NAT PEPTIDE 188 pg/mL (<300); SGOT 29 U/L (15-37); SGPT 31 U/L (30-65); TOTAL PROTEIN 7.2 g/dL (6.4-8.2); TROPONIN-I LEVEL <0.06 ng/mL (<0.06)
[2018-06-18 23:02] LABS: TOTAL BILIRUBIN 0.1 mg/dL (<0.1-1.0)
[2018-06-19 00:26] VITALS: BP 148/98
--- NOTE | 2018-06-19 10:32 | EKG ---
[place] [address] ELECTROCARDIOGRAM REPORT Name: JOSE COLMENARES Room: [facility]#: [id number] Admission: 06/18/18 Attend Phys: Discharge: 06/19/18 Date of : 50 Report #: [id number] THIS REPORT FOR: //name// [facility] ED Test Date: 2018-06-18 Test Time: 21:57:43 Pat Name: JOSE COLMENARES Department: Room: Gender: F Contract Programmer: : 1950 Requested By: Saranya Russo Order Number: [id number] MD: George Cohen Measurements Intervals [place] Rate: 85 P: 29 [place]: 154 QRS: 14 QRSD: 88 T: 62 QT: 346 QTc: 412 Interpretive Statements Sinus tachycardia Multiple supraventricular premature complexes Probable left atrial enlargement Compared to ECG 11/12/2017 19:43:55 No significant changes Electronically Signed On 06-19-2018 10:32:11 BREAKER MACHINE OPERATOR by George Cohen [email or web address] <ELECTRONICALLY SIGNED> By: George Cohen MD, [facility] 06/19/18 1032 56 56 George Cohen MD, FACC /EPI
== END 2018-06-19 00:28 | disposition home or self-care (01) ==
LOC: M.ERS 21:51
PROVIDERS: Personal Emergency Response Attendant
DX: I49.3 Ventricular premature depolarization (principal); R07.89 Other chest pain; I12.9 Hypertensive chronic kidney disease with stage 1 through stage 4 chronic kidney disease, or unspecified chronic kidney disease; N18.3 Chronic kidney disease, stage 3 (moderate); E07.9 Disorder of thyroid, unspecified; Z88.2 Allergy status to sulfonamides; Z88.5 Allergy status to narcotic agent; Z88.6 Allergy status to analgesic agent; Z88.8 Allergy status to other drugs, medicaments and biological substances; Z91.041 Radiographic dye allergy status

== ENCOUNTER 2018-08-13 18:04 | Emergency (ER) | payer MEDICAID ==
[~2018-08-13] VITALS: Ht 160 cm; Wt 68.0 kg
[2018-08-13 21:05] VITALS: BP 130/70
== END 2018-08-13 21:05 | disposition home or self-care (01) ==
LOC: M.ERS 18:04
DX: M79.604 Pain in right leg (principal); I12.9 Hypertensive chronic kidney disease with stage 1 through stage 4 chronic kidney disease, or unspecified chronic kidney disease; N18.3 Chronic kidney disease, stage 3 (moderate); Z88.2 Allergy status to sulfonamides; Z88.5 Allergy status to narcotic agent; Z88.8 Allergy status to other drugs, medicaments and biological substances

== ENCOUNTER 2018-11-02 05:11 | Emergency (ER) | payer MEDICAID ==
[~2018-11-02] VITALS: Ht 162.6 cm; Wt 77.7 kg
[2018-11-02 05:18] VITALS: BP 160/76
[2018-11-02 05:30] LABS: HEMATOCRIT 40.5 % (37.0-47.0); MCH 30.6 pg (26.0-34.0); MCHC 32.2 g/dL (28.0-37.0); MCV 95.3 fL (80.0-100.0); MPV 8.5 fl. (7.2-11.1); NUCLEATED RBCS 0 /100WBC; PLATELET COUNT* 253 thou/uL (150-400); RBC 4.25 mil/uL (4.20-5.00); RDW-CV 12.9 % (10.5-14.5); WBC 7.5 thou/uL (4.0-11.0)
[2018-11-02 05:38] LABS: ANION GAP 13 mmol/L (7-16); BUN 23 mg/dL (7-18); CHLORIDE 110 mmol/L (98-107); CO2 20 mmol/L (21-32); CREATININE 1.3 mg/dL (0.6-1.3); GLUCOSE 116 mg/dL (70-99); POTASSIUM 4.1 mmol/L (3.5-5.1); SODIUM 143 mmol/L (136-145)
[2018-11-02 05:47] LABS: ALBUMIN 3.6 g/dL (3.4-5.0); ALKALINE PHOSPHATASE 106 U/L (46-116); SGOT 22 U/L (15-37); SGPT 28 U/L (30-65); TOTAL BILIRUBIN 0.2 mg/dL (<0.1-1.0); TOTAL PROTEIN 6.8 g/dL (6.4-8.2); TROPONIN-I LEVEL <0.06 ng/mL (<0.06)
[2018-11-02 05:48] LABS: ABSOLUTE EOSINOPHILS 0.8 thou/uL (0.0-0.7); ABSOLUTE LYMPHOCYTES 3.2 thou/uL (0.8-5.3); ABSOLUTE MONOCYTES 0.2 thou/uL (0.0-1.2); ABSOLUTE NEUTROPHILS 3.3 thou/uL (1.6-8.1); PLATELET ESTIMATE ADEQUATE
[2018-11-02 05:49] LABS: ANISOCYTOSIS 1+; POIKILOCYTOSIS 1+
--- NOTE | 2018-11-02 14:03 | EKG ---
[place] [address] ELECTROCARDIOGRAM REPORT Name: JOSE COLMENARES Room: [facility]#: [id number] Admission: 11/02/18 Attend Phys: Discharge: 11/02/18 Date of : 50 Report #: [id number] THIS REPORT FOR: //name// [facility] ED Test Date: 2018-11-02 Test Time: 05:34:42 Pat Name: JOSE COLMENARES Department: Room: Gender: F Accounts Receivable Supervisor: JOSE MIGUEL : 1950 Requested By: Tyrone Hogan Order Number: [id number] MD: Luisito Harvey Measurements Intervals [place] Rate: 59 P: 39 [place]: 163 QRS: -4 QRSD: 93 T: 53 QT: 403 QTc: 400 Interpretive Statements Sinus rhythm Probable left atrial enlargement Compared to ECG 06/18/2018 21:57:43 Sinus tachycardia no longer present Electronically Signed On 11-02-2018 14:02:58 CDT by Luisito Harvey [email or web address] <ELECTRONICALLY SIGNED> By: Luisito Harvey MD, [facility] 11/02/18 1402 D: 06/533 Luisito Harvey MD, FACC /EPI
== END 2018-11-02 06:12 | disposition home or self-care (01) ==
LOC: M.ERS 05:11
PROVIDERS: Emergency Medicine Emergency Medical Services
DX: S60.561A Insect bite (nonvenomous) of right hand, initial encounter (principal); I12.9 Hypertensive chronic kidney disease with stage 1 through stage 4 chronic kidney disease, or unspecified chronic kidney disease; N18.3 Chronic kidney disease, stage 3 (moderate); J45.909 Unspecified asthma, uncomplicated; W57.XXXA Bitten or stung by nonvenomous insect and other nonvenomous arthropods, initial encounter; Y93.89 Activity, other specified; Y92.89 Other specified places as the place of occurrence of the external cause; Y99.8 Other external cause status

== ENCOUNTER 2018-11-22 08:09 | Emergency (ER) | payer MEDICAID ==
[~2018-11-22] VITALS: Ht 162.6 cm; Wt 70.7 kg
[2018-11-22 08:35] LABS: URINE BILIRUBIN NEGATIVE (Negative); URINE BLOOD NEGATIVE (Negative); URINE CLARITY CLEAR; URINE COLOR YELLOW; URINE GLUCOSE-RANDOM NEGATIVE (Negative); URINE KETONES NEGATIVE (Negative); URINE LEUKOCYTES-REFLEX 1+ (Negative); URINE NITRITE-REFLEX NEGATIVE (Negative); URINE PROTEIN TRACE (Negative); URINE SPECIFIC GRAVITY >= 1.030 (1.005-1.030); URINE UROBILINOGEN 0.2 E.U./dl (0.2-1.0)
[2018-11-22 08:45] LABS: MUCUS 0-3 Light strn/LPF (None Seen); SQUAMOUS 4-10 Moderate /LPF (0-3); URINE RBC 0-2 Rare /HPF (0-2); URINE WBC-REFLEX 6-15 Few /HPF (0-5)
[2018-11-22 08:46] LABS: COARSE GRANULAR CASTS 0-3 Few /LPF (None Seen); CRYSTALS None Seen /LPF (None Seen)
[2018-11-22 09:05] LABS: HEMATOCRIT 43.1 % (37.0-47.0); HEMOGLOBIN 14.3 gm/dL (12.0-15.0); MCH 31.6 pg (26.0-34.0); MCHC 33.1 g/dL (28.0-37.0); MCV 95.6 fL (80.0-100.0); MPV 8.8 fl. (7.2-11.1); NUCLEATED RBCS 0 /100WBC; PLATELET COUNT* 265 thou/uL (150-400); RBC 4.51 mil/uL (4.20-5.00); RDW-CV 12.9 % (10.5-14.5); WBC 7.3 thou/uL (4.0-11.0)
[2018-11-22 09:09] LABS: ANION GAP 8 mmol/L (7-16); BUN 23 mg/dL (7-18); CALCIUM 9.4 mg/dL (8.5-10.1); CHLORIDE 109 mmol/L (98-107); CO2 21 mmol/L (21-32); CREATININE 1.5 mg/dL (0.6-1.3); GLUCOSE 109 mg/dL (70-99); POTASSIUM 4.6 mmol/L (3.5-5.1); SODIUM 138 mmol/L (136-145)
[2018-11-22 09:20] LABS: ALBUMIN 3.8 g/dL (3.4-5.0); ALKALINE PHOSPHATASE 110 U/L (46-116); NT-PRO BRAIN NAT PEPTIDE 230 pg/mL (<300); SGOT 20 U/L (15-37); SGPT 29 U/L (30-65); TOTAL BILIRUBIN 0.2 mg/dL (<0.1-1.0); TOTAL PROTEIN 7.4 g/dL (6.4-8.2); TROPONIN-I LEVEL <0.06 ng/mL (<0.06)
[2018-11-22 09:21] LABS: APTT 28.6 Seconds (25.0-31.3); INR 0.9; PROTIME 9.6 Seconds (9.20-11.50)
[2018-11-22] MEDS ORDERED: MACROBID 100 M100 M1 PO (09:25)
[2018-11-22 09:33] VITALS: BP 149/72
[2018-11-22 11:04] LABS: ABSOLUTE BASOPHILS 0.1 thou/uL (0.0-0.2); ABSOLUTE EOSINOPHILS 0.5 thou/uL (0.0-0.7); ABSOLUTE MONOCYTES 0.9 thou/uL (0.0-1.2); ABSOLUTE NEUTROPHILS 4.7 thou/uL (1.6-8.1)
[2018-11-22 11:06] LABS: PLATELET ESTIMATE ADEQUATE
--- NOTE | 2018-11-22 17:19 | EKG ---
[place] [address] ELECTROCARDIOGRAM REPORT Name: JOSE COLMENARES Room: [facility]#: [id number] Admission: 11/22/18 Attend Phys: Discharge: 11/22/18 Date of : [birth year] Report #: [id number] THIS REPORT FOR: //name// [facility] ED Test Date: 2018-11-22 Test Time: 08:21:49 Pat Name: JOSE COLMENARES Department: Room: Gender: F Case Loader Operator: : 1950 Requested By: Francisco Reilly Order Number: [id number] MD: Luisito Harvey Measurements Intervals [place] Rate: 71 P: 76 [place]: 172 QRS: 1 QRSD: 92 T: 65 QT: 360 QTc: 392 Interpretive Statements Sinus rhythm Multiple ventricular premature complexes Minimal ST elevation, anterior leads Compared to ECG 11/02/2018 05:34:42 Ventricular premature complex(es) now present Electronically Signed On 11-22-2018 17:19:07 CDT by Luisito Harvey [email or web address] <ELECTRONICALLY SIGNED> By: Luisito Harvey MD, [facility] 11/22/18 1719 0 0 Luisito Harvey MD, FAC /EPI
== END 2018-11-22 09:34 | disposition home or self-care (01) ==
LOC: M.ERS 08:09
PROVIDERS: Family Medicine
DX: N39.0 Urinary tract infection, site not specified (principal); R06.00 Dyspnea, unspecified; I12.9 Hypertensive chronic kidney disease with stage 1 through stage 4 chronic kidney disease, or unspecified chronic kidney disease; N18.3 Chronic kidney disease, stage 3 (moderate); Z91.041 Radiographic dye allergy status; Z88.5 Allergy status to narcotic agent; Z88.1 Allergy status to other antibiotic agents; Z88.8 Allergy status to other drugs, medicaments and biological substances; Z88.2 Allergy status to sulfonamides

== ENCOUNTER → 2018-12-26 | Outpatient (CLI) | payer MEDICAID | LOC: M.RAD 14:02 | DX: Z12.31 Encounter for screening mammogram for malignant neoplasm of breast (principal) ==

== ENCOUNTER 2019-03-10 15:45 | Emergency (ER) | payer MEDICAID ==
[~2019-03-10] VITALS: Ht 162.6 cm; Wt 72.3 kg
[2019-03-10 17:02] LABS: HEMATOCRIT 39.7 % (37.0-47.0); HEMOGLOBIN 13.1 gm/dL (12.0-15.0); MCH 31.6 pg (26.0-34.0); MCV 95.8 fL (80.0-100.0); NUCLEATED RBCS 0 /100WBC; PLATELET COUNT* 226 thou/uL (150-400); RBC 4.15 mil/uL (4.20-5.00); RDW-CV 12.5 % (10.5-14.5); WBC 6.4 thou/uL (4.0-11.0)
[2019-03-10 17:03] LABS: CALCIUM 8.4 mg/dL (8.5-10.1); CREATININE 1.5 mg/dL (0.6-1.3)
[2019-03-10 17:06] LABS: PROTIME 10.7 Seconds (9.20-11.50)
[2019-03-10 17:08] LABS: ALBUMIN 3.2 g/dL (3.4-5.0); TOTAL BILIRUBIN 0.2 mg/dL (<0.1-1.0); TOTAL PROTEIN 6.4 g/dL (6.4-8.2)
[2019-03-10 17:20] VITALS: BP 127/51
[2019-03-10 17:30] LABS: ABSOLUTE EOSINOPHILS 0.7 thou/uL (0.0-0.7); ABSOLUTE LYMPHOCYTES 2.8 thou/uL (0.8-5.3); ABSOLUTE MONOCYTES 0.3 thou/uL (0.0-1.2); ABSOLUTE NEUTROPHILS 2.6 thou/uL (1.6-8.1); PLATELET ESTIMATE ADEQUATE
== END 2019-03-10 17:21 | disposition left against medical advice (07) ==
LOC: M.ERS 15:45
PROVIDERS: Personal Emergency Response Attendant
DX: M25.561 Pain in right knee (principal); Z91.041 Radiographic dye allergy status; Z88.5 Allergy status to narcotic agent; Z88.2 Allergy status to sulfonamides; Z88.8 Allergy status to other drugs, medicaments and biological substances

== ENCOUNTER 2019-06-13 22:17 | Emergency (ER) | payer MEDICAID ==
[~2019-06-13] VITALS: Ht 162.6 cm; Wt 71.7 kg
[2019-06-13 23:14] LABS: HEMATOCRIT 42.4 % (37.0-47.0); HEMOGLOBIN 14.3 gm/dL (12.0-15.0); MCH 31.7 pg (26.0-34.0); MCHC 33.7 g/dL (28.0-37.0); MCV 94.3 fL (80.0-100.0); MPV 9.7 fl. (7.2-11.1); NUCLEATED RBCS 0 /100WBC; PLATELET COUNT* 283 thou/uL (150-400); RBC 4.49 mil/uL (4.20-5.00); RDW-CV 13.3 % (10.5-14.5); WBC 5.1 thou/uL (4.0-11.0)
[2019-06-13 23:21] LABS: CALCIUM 8.8 mg/dL (8.5-10.1); CREATININE 1.5 mg/dL (0.6-1.3); POTASSIUM 4.6 mmol/L (3.5-5.1)
[2019-06-13 23:23] LABS: APTT 25.7 Seconds (25.0-31.3); PROTIME 10.1 Seconds (9.20-11.50)
[2019-06-13 23:26] LABS: ALBUMIN 3.5 g/dL (3.4-5.0); TOTAL BILIRUBIN 0.2 mg/dL (<0.1-1.0); TOTAL PROTEIN 7.4 g/dL (6.4-8.2)
[2019-06-14 00:14] LABS: ABSOLUTE EOSINOPHILS 0.1 thou/uL (0.0-0.7); ABSOLUTE LYMPHOCYTES 0.7 thou/uL (0.8-5.3); ABSOLUTE NEUTROPHILS 4.4 thou/uL (1.6-8.1); PLATELET ESTIMATE ADEQUATE
[2019-06-14 00:23] LABS: INFLUENZA A ANTIGEN Negative (Negative); INFLUENZA B ANTIGEN Negative (Negative)
[2019-06-14 00:39] VITALS: BP 160/80
== END 2019-06-14 00:41 | disposition still patient (30) ==
LOC: M.ERS 22:17
PROVIDERS: Nurse Practitioner Family
DX: H91.92 Unspecified hearing loss, left ear (principal); I12.9 Hypertensive chronic kidney disease with stage 1 through stage 4 chronic kidney disease, or unspecified chronic kidney disease; N18.3 Chronic kidney disease, stage 3 (moderate); Z85.828 Personal history of other malignant neoplasm of skin; Z88.1 Allergy status to other antibiotic agents; Z88.5 Allergy status to narcotic agent; Z88.2 Allergy status to sulfonamides; Z91.041 Radiographic dye allergy status

== ENCOUNTER 2019-06-18 14:25 | Emergency (ER) | payer MEDICAID ==
[~2019-06-18] VITALS: Ht 162.6 cm; Wt 72.1 kg
[2019-06-18 16:13] LABS: ABSOLUTE BASOPHILS 0.2 thou/uL (0.0-0.2); ABSOLUTE EOSINOPHILS 0.3 thou/uL (0.0-0.7); ABSOLUTE LYMPHOCYTES 1.8 thou/uL (0.8-5.3); ABSOLUTE MONOCYTES 0.7 thou/uL (0.0-1.2); ABSOLUTE NEUTROPHILS 4.5 thou/uL (1.6-8.1); BASOPHILS 2.1 %; CALCIUM 8.9 mg/dL (8.5-10.1); CREATININE 1.4 mg/dL (0.6-1.3); EOSINOPHILS 3.6 %; HEMATOCRIT 42.9 % (37.0-47.0); HEMOGLOBIN 14.4 gm/dL (12.0-15.0); LYMPHOCYTES 24.2 %; MCH 31.6 pg (26.0-34.0); MCHC 33.5 g/dL (28.0-37.0); MCV 94.2 fL (80.0-100.0); MONOCYTES 9.5 %; MPV 8.7 fl. (7.2-11.1); NUCLEATED RBCS 0 /100WBC; PLATELET COUNT* 281 thou/uL (150-400); POLYS 60.6 %; POTASSIUM 4.3 mmol/L (3.5-5.1); RBC 4.56 mil/uL (4.20-5.00); RDW-CV 13.1 % (10.5-14.5); WBC 7.5 thou/uL (4.0-11.0)
[2019-06-18 16:18] LABS: ALBUMIN 3.6 g/dL (3.4-5.0); TOTAL BILIRUBIN 0.5 mg/dL (<0.1-1.0); TOTAL PROTEIN 7.1 g/dL (6.4-8.2)
[2019-06-18 17:24] LABS: URINE BILIRUBIN NEGATIVE (Negative); URINE BLOOD NEGATIVE (Negative); URINE CLARITY CLEAR; URINE COLOR YELLOW; URINE GLUCOSE-RANDOM NEGATIVE (Negative); URINE KETONES NEGATIVE (Negative); URINE LEUKOCYTES-REFLEX TRACE (Negative); URINE NITRITE-REFLEX NEGATIVE (Negative); URINE PROTEIN NEGATIVE (Negative); URINE SPECIFIC GRAVITY >= 1.030 (1.005-1.030); URINE UROBILINOGEN 0.2 E.U./dl (0.2-1.0)
[2019-06-18 17:32] LABS: AMP/METHAMP Negative (Negative); BARBITURATES Negative (Negative); BENZODIAZEPINES Negative (Negative); COCAINE Negative (Negative); METHADONE Negative (Negative); OPIATES Negative (Negative); PCP Negative (Negative); THC Negative (Negative)
[2019-06-18 17:34] LABS: BACTERIA-REFLEX None Seen /HPF (None Seen); CRYSTALS None Seen /LPF (None Seen); HYALINE CASTS 0-3 Few /LPF (None Seen); SQUAMOUS 0-3 Few /LPF (0-3); URINE RBC None Seen /HPF (0-2); URINE WBC-REFLEX 0-5 Rare /HPF (0-5)
[2019-06-18 18:50] VITALS: BP 140/79
--- NOTE | 2019-06-20 13:57 | EKG ---
[place] [address] ELECTROCARDIOGRAM REPORT Name: JOSE COLMENARES Room: [facility]#: [id number] Admission: 06/18/19 Attend Phys: Discharge: 06/18/19 Date of : 50 Date of Service: 06/18/19 1447 Report #: [id number] THIS REPORT FOR: cc: George Mejía MD, David H. MD Holkins, John M. MD [facility] ~ THIS REPORT FOR: //name// [facility] ED Test Date: 2019-06-18 Test Time: 14:47:56 Pat Name: JOSE COLMENARES Department: Room: Gender: F Shell Fisherman: JEFFERY : 1950 Requested By: Bobby Gomez Order Number: [id number] MD: Luisito Harvey Measurements Intervals [place] Rate: 77 P: 63 [place]: 127 QRS: 9 QRSD: 106 T: 57 QT: 387 QTc: 438 Interpretive Statements Sinus rhythm Multiform ventricular premature complexes Consider anterior infarct Compared to ECG 11/22/2018 08:21:49 Myocardial infarct finding now present ST (T wave) deviation no longer present Electronically Signed On 06-19-2019 12:41:35 CLOCK MECHANIC by Luisito Harvey [email or web address] <ELECTRONICALLY SIGNED> By: Luisito Harvey MD, [facility] 06/19/19 1241 1447 1447 Luisito Harvey MD, [facility] /EPI
== END 2019-06-18 18:50 | disposition left against medical advice (07) ==
LOC: M.ERS 14:25
PROVIDERS: Physician Assistant
DX: H91.92 Unspecified hearing loss, left ear (principal); R07.89 Other chest pain; R42 Dizziness and giddiness; R00.2 Palpitations; R25.1 Tremor, unspecified; I10 Essential (primary) hypertension; Z91.041 Radiographic dye allergy status; Z88.1 Allergy status to other antibiotic agents; Z88.2 Allergy status to sulfonamides; Z88.5 Allergy status to narcotic agent; Z88.6 Allergy status to analgesic agent; Z88.8 Allergy status to other drugs, medicaments and biological substances; Z79.899 Other long term (current) drug therapy

== ENCOUNTER 2019-11-29 17:00 | Emergency (ER) | payer MEDICAID ==
[~2019-11-29] VITALS: Ht 162.6 cm; Wt 69.0 kg
[2019-11-29] MEDS ORDERED: PRILOSEC OTC20 MG PO (17:17)
[2019-11-29] MEDS ORDERED: AUGMENTIN 875-1 EACH PO (17:33)
[2019-11-29 18:20] VITALS: BP 142/93
== END 2019-11-29 18:22 | disposition home or self-care (01) ==
LOC: M.ERS 17:00
DX: S51.831A Puncture wound without foreign body of right forearm, initial encounter (principal); I10 Essential (primary) hypertension; Z91.041 Radiographic dye allergy status; Z88.2 Allergy status to sulfonamides; Z88.6 Allergy status to analgesic agent; Z88.8 Allergy status to other drugs, medicaments and biological substances; W55.01XA Bitten by cat, initial encounter; Y93.89 Activity, other specified; Y92.89 Other specified places as the place of occurrence of the external cause; Y99.8 Other external cause status

== ENCOUNTER → 2019-12-28 | Outpatient (CLI) | payer MEDICAID ==
[~2019-12-28] MED LIST changes: +AUGMENTIN 875-1 EACH PO; +PRILOSEC OTC20 MG PO
== END ==
LOC: M.RAD 15:30
PROVIDERS: ATTEND Internal Medicine
DX: Z12.31 Encounter for screening mammogram for malignant neoplasm of breast (principal)

== ENCOUNTER 2020-11-01 15:42 | Emergency (ER) | payer MEDICAID ==
[~2020-11-01] VITALS: Ht 160 cm; Wt 70.3 kg
[2020-11-01] MEDS ORDERED: TRAMADOL 50 MG50 MG PO (17:09)
[2020-11-01 17:20] VITALS: BP 164/50
== END 2020-11-01 17:20 | disposition home or self-care (01) ==
LOC: M.ERS 15:42
DX: S92.324A Nondisplaced fracture of second metatarsal bone, right foot, initial encounter for closed fracture (principal); I13.10 Hypertensive heart and chronic kidney disease without heart failure, with stage 1 through stage 4 chronic kidney disease, or unspecified chronic kidney disease; N18.30 Chronic kidney disease, stage 3 unspecified; Z91.041 Radiographic dye allergy status; Z88.1 Allergy status to other antibiotic agents; Z88.5 Allergy status to narcotic agent; Z88.2 Allergy status to sulfonamides; Z88.6 Allergy status to analgesic agent; Z88.8 Allergy status to other drugs, medicaments and biological substances; X50.9XXA Other and unspecified overexertion or strenuous movements or postures, initial encounter; Y93.89 Activity, other specified; Y92.89 Other specified places as the place of occurrence of the external cause; Y99.8 Other external cause status

== ENCOUNTER 2020-11-29 14:47 | Emergency (ER) | payer MEDICAID ==
[~2020-11-29] VITALS: Ht 160 cm; Wt 71.7 kg
[2020-11-29] MEDS ORDERED: DORYX MPC120 MG PO (15:20)
[2020-11-29 18:35] VITALS: BP 184/73
== END 2020-11-29 18:35 | disposition home or self-care (01) ==
LOC: M.ERS 14:47
DX: M51.36 Other intervertebral disc degeneration, lumbar region (principal); M54.32 Sciatica, left side; M54.31 Sciatica, right side; I13.10 Hypertensive heart and chronic kidney disease without heart failure, with stage 1 through stage 4 chronic kidney disease, or unspecified chronic kidney disease; N18.30 Chronic kidney disease, stage 3 unspecified; Z91.041 Radiographic dye allergy status; Z88.5 Allergy status to narcotic agent; Z88.2 Allergy status to sulfonamides; Z88.6 Allergy status to analgesic agent

== ENCOUNTER 2021-01-11 13:21 | Emergency (ER) | payer MEDICAID ==
[~2021-01-11] VITALS: Ht 162.6 cm; Wt 71.7 kg
[~2021-01-11 13:21] MED LIST changes: +DORYX MPC120 MG PO
[2021-01-11 14:28] LABS: URINE BILIRUBIN NEGATIVE (Negative); URINE BLOOD NEGATIVE (Negative); URINE CLARITY CLEAR; URINE COLOR YELLOW; URINE GLUCOSE-RANDOM NEGATIVE (Negative); URINE KETONES NEGATIVE (Negative); URINE LEUKOCYTES-REFLEX NEGATIVE (Negative); URINE NITRITE-REFLEX NEGATIVE (Negative); URINE PROTEIN 1+ (Negative); URINE UROBILINOGEN 0.2 E.U./dl (0.2-1.0)
[2021-01-11 15:10] LABS: ABSOLUTE BASOPHILS 0.1 thou/uL (0.0-0.2); ABSOLUTE EOSINOPHILS 0.2 thou/uL (0.0-0.7); ABSOLUTE LYMPHOCYTES 1.5 thou/uL (0.8-5.3); ABSOLUTE MONOCYTES 0.8 thou/uL (0.0-1.2); ABSOLUTE NEUTROPHILS 5.8 thou/uL (1.6-8.1); BASOPHILS 1.2 %; EOSINOPHILS 2.4 %; HEMATOCRIT 46.2 % (37.0-47.0); HEMOGLOBIN 15.3 gm/dL (12.0-15.0); LYMPHOCYTES 18.2 %; MCH 31.1 pg (26.0-34.0); MCHC 33.1 g/dL (28.0-37.0); MCV 93.9 fL (80.0-100.0); MONOCYTES 9.2 %; MPV 8.4 fl. (7.2-11.1); NUCLEATED RBCS 0 /100WBC; PLATELET COUNT* 289 thou/uL (150-400); RBC 4.92 mil/uL (4.20-5.00); RDW-CV 13.1 % (10.5-14.5); WBC 8.4 thou/uL (4.0-11.0)
[2021-01-11 15:29] LABS: CALCIUM 9.9 mg/dL (8.5-10.1); CREATININE 1.7 mg/dL (0.6-1.3)
[2021-01-11 15:34] LABS: ALBUMIN 4.1 g/dL (3.4-5.0); TOTAL BILIRUBIN 0.3 mg/dL (<0.1-1.0); TOTAL PROTEIN 7.5 g/dL (6.4-8.2)
--- NOTE | 2021-01-11 15:45 | EKG ---
[place] [address] ELECTROCARDIOGRAM REPORT Name: JOSE COLMENARES Room: [facility]#: [id number] Admission: 01/11/21 Attend Phys: Discharge: Date of : 50 Date of Service: 01/11/21 1428 Report #: [id number] THIS REPORT FOR: //name// [facility] ED Test Date: 2021-01-11 Test Time: 14:28:26 Pat Name: JOSE COLMENARES Department: Room: Gender: F Video Game Programmer: : 1950 Requested By: Francisco Reilly Order Number: [id number] MD: Prasanna Meza Measurements Intervals [place] Rate: 66 P: 66 [place]: 144 QRS: 0 QRSD: 92 T: 54 QT: 391 QTc: 410 Interpretive Statements Sinus rhythm ST elevation, early repolarization Delayed R wave progression compared to ECG 06/18/2019 14:47:56 ST (T wave) deviation now present Ventricular premature complex(es) no longer present Electronically Signed On 01-11-2021 15:45:32 CDT by Prasanna Meza [email or web address] <ELECTRONICALLY SIGNED> By: Prasanna Meza MD, FAC 01/11/21 1545 1428 1428 Prasanna Meza MD, [facility] /EPI
[2021-01-11] MEDS ORDERED: CIPRO500 M1 PO (16:24)
[2021-01-11 16:41] VITALS: BP 148/67
== END 2021-01-11 16:42 | disposition home or self-care (01) ==
LOC: M.ERS 13:21
PROVIDERS: Family Medicine
DX: R10.84 Generalized abdominal pain (principal); I12.9 Hypertensive chronic kidney disease with stage 1 through stage 4 chronic kidney disease, or unspecified chronic kidney disease; N18.30 Chronic kidney disease, stage 3 unspecified; Z79.82 Long term (current) use of aspirin; Z79.899 Other long term (current) drug therapy; Z88.5 Allergy status to narcotic agent; Z88.2 Allergy status to sulfonamides; Z88.6 Allergy status to analgesic agent; Z91.041 Radiographic dye allergy status; Z88.8 Allergy status to other drugs, medicaments and biological substances

== ENCOUNTER 2021-01-13 05:04 | Emergency (ER) | payer MEDICAID ==
[~2021-01-13] VITALS: Ht 162.6 cm; Wt 72.1 kg
[~2021-01-13 05:04] MED LIST changes: +CIPRO500 M1 PO
[2021-01-13 05:39] LABS: ABSOLUTE BASOPHILS 0.1 thou/uL (0.0-0.2); ABSOLUTE EOSINOPHILS 0.7 thou/uL (0.0-0.7); ABSOLUTE LYMPHOCYTES 2.8 thou/uL (0.8-5.3); ABSOLUTE MONOCYTES 0.9 thou/uL (0.0-1.2); ABSOLUTE NEUTROPHILS 3.9 thou/uL (1.6-8.1); EOSINOPHILS 7.8 %; HEMATOCRIT 40.8 % (37.0-47.0); HEMOGLOBIN 13.8 gm/dL (12.0-15.0); LYMPHOCYTES 33.9 %; MCH 31.4 pg (26.0-34.0); MCHC 33.7 g/dL (28.0-37.0); MCV 93.3 fL (80.0-100.0); MONOCYTES 10.5 %; NUCLEATED RBCS 0 /100WBC; PLATELET COUNT* 265 thou/uL (150-400); POLYS 46.8 %; RBC 4.38 mil/uL (4.20-5.00); WBC 8.4 thou/uL (4.0-11.0)
[2021-01-13 05:43] LABS: CALCIUM 8.8 mg/dL (8.5-10.1); CREATININE 1.8 mg/dL (0.6-1.3); POTASSIUM 3.4 mmol/L (3.5-5.1)
[2021-01-13 05:48] LABS: APTT 24.2 Seconds (25.0-31.3); PROTIME 10.4 Seconds (9.20-11.50)
[2021-01-13 05:59] LABS: TOTAL BILIRUBIN 0.4 mg/dL (<0.1-1.0); TOTAL PROTEIN 7.3 g/dL (6.4-8.2)
[2021-01-13 09:09] VITALS: BP 170/59
--- NOTE | 2021-01-13 17:47 | EKG ---
[place] [address] ELECTROCARDIOGRAM REPORT Name: JOSE COLMENARES Room: [facility]#: [id number] Admission: 01/13/21 Attend Phys: Discharge: 01/13/21 Date of : 50 Date of Service: 01/13/21 0509 Report #: [id number] THIS REPORT FOR: //name// [facility] ED Test Date: 2021-01-13 Test Time: 05:09:14 Pat Name: JOSE COLMENARES Department: Room: Gender: Strap Setter: CHRISTY : 1950 Requested By: Saranya Russo Order Number: [id number] MD: Prasanna Meza Measurements Intervals [place] Rate: 73 P: 73 [place]: 148 QRS: 2 QRSD: 96 T: 62 QT: 398 QTc: 439 Interpretive Statements Sinus rhythm Possible left atrial enlargement Left ventricular hypertrophy Baseline wander in lead(s) V6 Compared to ECG 01/11/2021 14:28:26 Left ventricular hypertrophy now present ST (T wave) deviation no longer present Early repolarization no longer present Poor R-wave progression no longer present Electronically Signed On 01-13-2021 17:47:32 CDT by Prasanna Meza [email or web address] <ELECTRONICALLY SIGNED> By: Prasanna Meza MD, [facility] 01/13/21 1747 0509 0509 Prasanna Meza MD, [facility] /EPI
== END 2021-01-13 09:10 | disposition home or self-care (01) ==
LOC: M.ERS 05:04
PROVIDERS: Personal Emergency Response Attendant
DX: R07.89 Other chest pain (principal); I10 Essential (primary) hypertension; Z79.2 Long term (current) use of antibiotics; Z79.899 Other long term (current) drug therapy; Z79.82 Long term (current) use of aspirin; Z91.041 Radiographic dye allergy status; Z88.5 Allergy status to narcotic agent; Z88.6 Allergy status to analgesic agent; Z88.2 Allergy status to sulfonamides

== ENCOUNTER 2021-03-18 14:55 | Emergency (ER) | payer MEDICAID ==
[~2021-03-18] VITALS: Ht 160 cm; Wt 71.7 kg
[2021-03-18] MEDS ORDERED: TRAMADOL 50 MG50 MG PO (16:35)
[2021-03-18 16:47] VITALS: BP 148/72
== END 2021-03-18 16:48 | disposition home or self-care (01) ==
LOC: M.ERS 14:55
DX: S80.01XA Contusion of right knee, initial encounter (principal); I12.9 Hypertensive chronic kidney disease with stage 1 through stage 4 chronic kidney disease, or unspecified chronic kidney disease; N18.30 Chronic kidney disease, stage 3 unspecified; Z79.899 Other long term (current) drug therapy; Z91.041 Radiographic dye allergy status; Z88.5 Allergy status to narcotic agent; Z88.6 Allergy status to analgesic agent; Z88.2 Allergy status to sulfonamides; W01.0XXA Fall on same level from slipping, tripping and stumbling without subsequent striking against object, initial encounter; Y93.89 Activity, other specified; Y92.89 Other specified places as the place of occurrence of the external cause; Y99.8 Other external cause status

== ENCOUNTER → 2021-04-22 | Outpatient (CLI) | payer MEDICAID | LOC: M.RAD 04-09 13:00 | PROVIDERS: ATTEND Internal Medicine | DX: Z12.31 Encounter for screening mammogram for malignant neoplasm of breast (principal) ==